=== PATIENT | female | born 1995 | race Caucasian/White ===

== ENCOUNTER 2022-06-04 15:21 | Emergency (ER) | payer BC ==
[~2022-06-04] VITALS: Ht 170.2 cm; Wt 90.9 kg
[2022-06-04 15:36] VITALS: BP 126/69; TEMP 98
[2022-06-04 16:29] LABS: STREP SCREEN NEGATIVE
[2022-06-04] MEDS ORDERED: CARAFATE S1 GM/10 ML PO (18:07)
[2022-06-04] MEDS ORDERED: NORCOELIX PO (18:07)
[2022-06-04 18:47] VITALS: PULSE 88
== END 2022-06-04 18:47 | disposition home or self-care (01) ==
LOC: COL.ER 15:21
PROVIDERS: Emergency Medicine
DX: K22.9 Disease of esophagus, unspecified (principal); R07.81 Pleurodynia
CPT/HCPCS: J1885